=== PATIENT | male | born 1980 | race Caucasian/White ===

== ENCOUNTER 2024-02-16 06:27 | Outpatient (CLI) | payer OTHER, SELFPAY ==
[2024-02-16 06:54] VITALS: BP 126/89; PULSE 70; RESP 16; TEMP 36.4; O2SAT 98
--- NOTE | 2024-02-16 07:29 | P.ORPRC_ITS ---
Procedure Note Date of procedure: 02/16/24 Procedure: SURGEON: Levi Restrepo MD DETECTIVE AUTOMO[employer]LE SECTION: Olivia Bey PA-C PREOPERATIVE DIAGNOSIS: Right elbow common extensor tendinopathy POSTOPERATIVE DIAGNOSIS: Right elbow common extensor tendinopathy NAME OF OPERATION: Percutaneous tenotomy ANESTHESIA: Local ESTIMATED BLOOD LOSS: 0 mL. COMPLICATIONS: None. SPECIMENS: None. DRAINS: None. PREOPERATIVE ANTIBIOTICS: None INDICATIONS: The patient is a 43-year-old male with a history of right elbow pain secondary to the above diagnosis. Despite appropriate non operative management, they continue to have symptoms. Operative intervention was recommended. The risks, benefits and expected outcomes were discussed in detail. These included but were not limited to: Infection, bleeding, injury to blood vessel or nerve, venous thromboembolism. All questions were answered to their satisfaction. PROCEDURE: The patient was placed supine on the hospital cart. The elbow was imaged in the long axis with the ultrasound transducer. Normal acoustic landmarks were identified. There was a marked amount of calcification within the common extensor origin. We then sterilely prepped and draped the skin, and used a sterile probe cover with sterile gel. Local anesthesia was established with 10 mL of a solution containing 2 % lidocaine without epinephrine, 0.5% Marcaine without epinephrine and sodium bicarbonate. An 11 blade was used to incise the skin. The Tenex TX 1 micro tip was used to treat the common extensor tendon for a total of 3 minutes and 29 seconds. The entirety of the tendon was treated from anterior to posterior and from proximal to distal. The incision was Steri-Stripped closed. A dry dressing was applied. Sponge and needle counts were correct x2. The patient tolerated the procedure well. There were no apparent complications. They were discharged to home in satisfactory condition. PLAN: The patient may use the upper extremity as tolerates. Tylenol can be used for pain/discomfort. They may ramp up activity as the elbow will allow. They will follow up in the office next week to assess their progress.
== END 2024-02-16 07:30 | disposition home or self-care (01) ==
LOC: OP CLINIC 06:28
PROVIDERS: PCP Family Medicine; Visit Provider Orthopaedic Surgery
DX: M77.11 Lateral epicondylitis, right elbow (principal); M25.521 Pain in right elbow
CPT/HCPCS: 24357; 76942